=== PATIENT | female | born 1970 | race Caucasian/White ===

== ENCOUNTER → 2024-10-27 09:57 | Outpatient (CLI) | payer BC, SELFPAY ==
[2024-10-27 10:49] LABS: Cholesterol 264 mg/dL (140-199); HDL Cholesterol 90 mg/dL (40-60); LDL Cholesterol Calculated 157 mg/dL (<100); Triglycerides 87 mg/dL (35-150)
== END ==
PROVIDERS: PCP Family Medicine; Referring Provider Family Medicine; Visit Provider Family Medicine
DX: E78.5 Hyperlipidemia, unspecified (principal); Z13.220 Encounter for screening for lipoid disorders; Z76.89 Persons encountering health services in other specified circumstances; Z78.9 Other specified health status
CPT/HCPCS: 36415; 80061